=== PATIENT | male | born 1950 | race Two or more races ===

== ENCOUNTER 2024-03-20 06:06 | Inpatient (IN) | payer MEDICARE, MEDICAID ==
[~2024-03-20] VITALS: Ht 190.5 cm; Wt 67.4 kg
[2024-03-20 07:45] LABS: COVID AG,FIA SOURCE NASAL SWAB
[2024-03-20 07:50] LABS: BASOPHILS % (AUTO) 0.9 % (0.0-2.0); EOSINOPHILS % (AUTO) 5.5 % (1.0-6.0); HEMATOCRIT 28.8 % (41-53); HEMOGLOBIN 9.6 g/dL (13.5-17.5); LYMPHOCYTES # (AUTO) 1.3 K/uL (1.0-4.8); LYMPHOCYTES % (AUTO) 22.8 % (22.0-44.0); MEAN CORPUSCULAR HEMOGLOBIN 33.4 pg (26.0-34.0); MEAN CORPUSCULAR HGB CONC 33.3 G/dL (31.0-37.0); MEAN CORPUSCULAR VOLUME 100 fL (80-100); MONOCYTES # (AUTO) 0.9 K/uL (0.1-1.0); MONOCYTES % (AUTO) 15.6 % (2.0-9.0); NEUTROPHILS % (AUTO) 55.2 % (40.0-70.0); PLATELET COUNT (AUTO) 304 K/uL (150-450); RED BLOOD CELL COUNT(AUTO) 2.87 MIL/uL (4.50-5.90); RED CELL DISTRIBUTION WIDTH 14.7 % (11.5-14.5); WHITE BLOOD COUNT (AUTO) 5.5 K/uL (4.5-11.0)
[2024-03-20 07:56] LABS: PH,URINE DRUG SCREEN 7.5 (5.0-8.0)
[2024-03-20 07:58] LABS: ALCOHOL, URINE DRUG SCREEN NEGATIVE (NEGATIVE); AMPHET/METH SCREEN,URINE NEGATIVE (NEGATIVE); BARBITURATE SCREEN, URINE NEGATIVE (NEGATIVE); BENZODIAZEPINES SCREEN,URINE NEGATIVE (NEGATIVE); CANNABINOID SCREEN,URINE NEGATIVE (NEGATIVE); COCAINE SCREEN,URINE NEGATIVE (NEGATIVE); METHADONE SCREEN, URINE NEGATIVE (NEGATIVE); OPIATE SCREEN,URINE NEGATIVE (NEGATIVE); PHENCYCLIDINE SCREEN,URINE NEGATIVE (NEGATIVE)
[2024-03-20 08:01] LABS: ANION GAP 5 mmol/L (8-16); CALCIUM, TOTAL 9.3 mg/dL (8.8-10.5); CARBON DIOXIDE 27 mmol/L (22-29); CHLORIDE 103 mmol/L (98-107); CREATININE 0.99 mg/dL (0.60-1.30); GLOMERULAR FILTR. RATE CALC > 60 mL/min (>60); GLUCOSE,RANDOM 98 mg/dL (70-110); POTASSIUM 4.7 mmol/L (3.5-5.1); SODIUM SERUM 135 mmol/L (136-145); UREA NITROGEN, BLOOD 18 mg/dL (7-18)
[2024-03-20 08:05] LABS: ALCOHOL, BLOOD (SERUM) < 3 mg/dL (0-10)
[2024-03-20 08:06] LABS: SARS-COV2 (COVID) ANTIGEN,FIA Negative (Negative)
[2024-03-20 11:59] LABS: APPEARANCE,URINE CLEAR (CLEAR); BILIRUBIN,URINE NEGATIVE (NEGATIVE); COLOR,URINE LIGHT YELLOW (YELLOW); GLUCOSE, URINE (UA) NEGATIVE (NEGATIVE); KETONES,URINE NEGATIVE (NEGATIVE); LEUKOCYTE ESTERASE ,URINE NEGATIVE (NEGATIVE); NITRATE,URINE NEGATIVE (NEGATIVE); OCCULT BLOOD,URINE NEGATIVE (NEGATIVE); PROTEIN,URINE NEGATIVE (NEGATIVE); UROBILINOGEN,URINE <=1.0 mg/dL (<=1.0)
[2024-03-20] MEDS: LORazepam 2 MG TABLET PO ONE (12:25)
[2024-03-20] MEDS: LORazepam 2 MG TABLET PO PRN (22:15)
[2024-03-20 23:11] VITALS: BP 114/73; PULSE 70; RESP 18; TEMP 98.2; O2SAT 98
[2024-03-20] MEDS: IBUPROFEN 400 MG TABLET PO PRN (23:11)
[2024-03-20] MEDS ORDERED: ONDANSETRON 4 MG TABLET PO PRN (23:15)
[2024-03-20] MEDS ORDERED: MAGNESIUM HYDROXIDE SUSPENSION 30 ML UDCUP PO PRN (23:15)
[2024-03-20] MEDS ORDERED: LOPERAMIDE HCL 2 MG CAPSULE PO PRN (23:15)
[2024-03-20] MEDS ORDERED: NICOTINE 14 MG/24 HOUR PATCH TD PRN (23:15)
[2024-03-20] MEDS ORDERED: ALBUTEROL SULFATE HFA 90 MCG/PUFF 8 GM INHALER IH PRN (23:15)
[2024-03-20] MEDS ORDERED: CloNIDine HCL 0.1 MG TABLET PO PRN (23:15)
[2024-03-20] MEDS ORDERED: MAG HYDROX/ALUMINUM HYD/SIMETH ES 30 ML SUSPENSION UDCUP PO PRN (23:15)
[2024-03-20] MEDS ORDERED: GuaiFENesin/D-METHORPHAN [SUGAR-FREE] 200-20MG/10 ML SYRUP UDCUP PO PRN (23:15)
[2024-03-20] MEDS ORDERED: PETROLATUM,WHITE 28 GM JELLY TP PRN (23:15)
[2024-03-20 23:27] VITALS: BP 119/97; PULSE 91; RESP 16; TEMP 98.1; O2SAT 96
[2024-03-21 07:51] LABS: BASOPHILS % (AUTO) 0.8 % (0.0-2.0); EOSINOPHILS % (AUTO) 9.6 % (1.0-6.0); HEMATOCRIT 29.2 % (41-53); HEMOGLOBIN 9.6 g/dL (13.5-17.5); LYMPHOCYTES % (AUTO) 19.3 % (22.0-44.0); MEAN CORPUSCULAR HEMOGLOBIN 33.4 pg (26.0-34.0); MEAN CORPUSCULAR HGB CONC 32.8 G/dL (31.0-37.0); MEAN CORPUSCULAR VOLUME 102 fL (80-100); MONOCYTES # (AUTO) 0.8 K/uL (0.1-1.0); MONOCYTES % (AUTO) 16.2 % (2.0-9.0); NEUTROPHILS # (AUTO) 2.7 K/uL (1.8-7.7); NEUTROPHILS % (AUTO) 54.1 % (40.0-70.0); PLATELET COUNT (AUTO) 308 K/uL (150-450); RED BLOOD CELL COUNT(AUTO) 2.87 MIL/uL (4.50-5.90); RED CELL DISTRIBUTION WIDTH 14.6 % (11.5-14.5)
[2024-03-21 08:20] LABS: ALANINE AMINOTRANSFERASE 23 U/L (12-78); ALBUMIN 3.3 g/dL (3.4-5.0); ALKALINE PHOSPHATASE 82 U/L (46-116); ANION GAP 7 mmol/L (8-16); ASPARTATE AMINOTRANSFERASE 21 U/L (15-37); BILIRUBIN,TOTAL 0.2 mg/dL (0.1-1.0); CALCIUM, TOTAL 8.8 mg/dL (8.8-10.5); CARBON DIOXIDE 25 mmol/L (22-29); CHLORIDE 105 mmol/L (98-107); CREATININE 0.97 mg/dL (0.60-1.30); GLOMERULAR FILTR. RATE CALC > 60 mL/min (>60); GLUCOSE,RANDOM 75 mg/dL (70-110); POTASSIUM 5.1 mmol/L (3.5-5.1); SODIUM SERUM 137 mmol/L (136-145); THYROID STIMULATING HORMONE 4.53 uIU/mL (0.36-3.74); TOTAL PROTEIN, SERUM 6.8 g/dL (6.4-8.2); UREA NITROGEN, BLOOD 15 mg/dL (7-18)
[2024-03-21 09:00] VITALS: BP 102/74; PULSE 93; RESP 17; TEMP 97.6; O2SAT 99
[2024-03-21 09:00] LABS: CHOL/HDL RATIO 2.1 (4.2-7.3); CHOLESTEROL 126 mg/dL (131-200); HDL CHOLESTEROL 61 mg/dL (40-60); LDL CHOL (CALC.) 55 mg/dL (0-130); TRIGLYCERIDES 50 mg/dL (15-150)
[2024-03-21] MEDS: DiphenhydrAMINE HCL 50 MG/ML VIAL IM ONE (20:13)
[2024-03-21] MEDS: LORazepam 2 MG/ML VIAL IM ONE (20:13)
[2024-03-21] MEDS: HALOPERIDOL LACTATE 5 MG/ML VIAL IM ONE (20:14)
[2024-03-21 20:31] VITALS: PULSE 115; RESP 18; O2SAT 98
[2024-03-22] MEDS: VENLAFAXINE HCL 75 MG ER CAPSULE PO SCH (08:35)
[2024-03-22] MEDS: AMITRIPTYLINE HCL 75 MG TABLET PO SCH (08:35)
[2024-03-22 09:23] VITALS: RESP 18; TEMP 97.7
[2024-03-22 20:44] VITALS: BP 124/88; PULSE 82; RESP 18; TEMP 98; O2SAT 99
[2024-03-23 10:15] VITALS: BP 114/70; PULSE 87; RESP 18; TEMP 97.1; O2SAT 96
[2024-03-23 20:35] VITALS: BP 113/62; PULSE 88; RESP 18; TEMP 99; O2SAT 99
[2024-03-24 08:41] VITALS: BP 130/72; PULSE 84; RESP 18; TEMP 99; O2SAT 100
[2024-03-24 21:03] VITALS: BP 143/74; PULSE 90; RESP 18; TEMP 97.5; O2SAT 100
[2024-03-25 08:29] VITALS: BP 116/72; PULSE 90; RESP 17; TEMP 98.6; O2SAT 98
[2024-03-25 21:08] VITALS: BP 104/74; PULSE 83; RESP 17; TEMP 98.2; O2SAT 98
[2024-03-26 09:17] VITALS: BP 112/77; PULSE 89; RESP 18; TEMP 98.6; O2SAT 100
[2024-03-26 14:30] VITALS: BP 111/83; PULSE 83; RESP 18; O2SAT 98
[2024-03-26 21:15] VITALS: BP 112/84; PULSE 62; RESP 20; TEMP 98.6; O2SAT 97
[2024-03-27 06:48] VITALS: BP 112/70; PULSE 73; RESP 18; TEMP 98.2; O2SAT 98
[2024-03-27] MEDS: ACETAMINOPHEN 325 MG TABLET PO PRN (06:51)
[2024-03-27 08:35] VITALS: BP 102/63; PULSE 79; TEMP 98; O2SAT 99
[2024-03-27] MEDS: HALOPERIDOL 5 MG TABLET PO PRN (17:15)
[2024-03-27 20:10] VITALS: BP 114/79; PULSE 90; RESP 18; TEMP 97.4; O2SAT 98
[2024-03-27] MEDS: ZOLPIDEM TARTRATE 10 MG TABLET PO PRN (20:19)
[2024-03-28 08:16] VITALS: BP 131/90; PULSE 83; RESP 16; TEMP 98.5; O2SAT 100
[2024-03-28 20:20] VITALS: BP 109/68; PULSE 85; RESP 18; TEMP 98.3; O2SAT 97
[2024-03-29] MEDS: DOCUSATE SODIUM 100 MG CAPSULE PO PRN (06:28)
[2024-03-29 08:44] VITALS: BP 116/77; PULSE 78; RESP 18; TEMP 97.1; O2SAT 98
[2024-03-29 20:47] VITALS: BP 126/89; PULSE 95; RESP 18; TEMP 98.3; O2SAT 99
[2024-03-30 10:09] VITALS: BP 119/80; PULSE 75; RESP 18; TEMP 97; O2SAT 97
[2024-03-30 20:50] VITALS: BP 120/58; PULSE 18; RESP 18; TEMP 98; O2SAT 99
[2024-03-31 08:47] VITALS: BP 111/77; PULSE 18; RESP 18; TEMP 98.4; O2SAT 98
[2024-03-31 21:15] VITALS: BP 117/92; PULSE 83; RESP 18; TEMP 98.2; O2SAT 97
[2024-04-01 21:52] VITALS: BP 115/77; PULSE 86; RESP 18; TEMP 97; O2SAT 98
[2024-04-02 12:33] VITALS: BP 118/83; PULSE 90; RESP 18; TEMP 97.3; O2SAT 97
[2024-04-02 22:44] VITALS: RESP 19; TEMP 97.6
[2024-04-03 10:27] VITALS: BP 112/67; PULSE 83; RESP 18; TEMP 97.9; O2SAT 95
[2024-04-03 21:40] VITALS: BP 119/73; PULSE 84; RESP 18; TEMP 98.1; O2SAT 100
[2024-04-04 09:00] VITALS: BP 108/76; PULSE 84; RESP 17; TEMP 97.6; O2SAT 95
[2024-04-04] MEDS: VENLAFAXINE HCL 150 MG ER CAPSULE PO SCH (09:23)
[2024-04-04 21:10] VITALS: BP 127/81; PULSE 95; RESP 18; TEMP 98.1; O2SAT 100
[2024-04-05 09:00] VITALS: BP 138/82; PULSE 74; RESP 18; TEMP 98; O2SAT 97
[2024-04-05 22:46] VITALS: BP 117/75; PULSE 57; RESP 18; TEMP 98; O2SAT 98
[2024-04-06] MEDS ORDERED: AMIT75TA2 PO (09:10)
[2024-04-06] MEDS ORDERED: VENL-68 PO (09:10)
[2024-04-06 10:00] VITALS: BP 117/80; PULSE 83; RESP 19; TEMP 97.8; O2SAT 98
== END 2024-04-06 17:44 | disposition home health service (06) | DRG 885 ==
LOC: EMS 06:09 → 3EI 21:23
PROVIDERS: ADMIT Psychiatry & Neurology Child & Adolescent Psychiatry; ATTEND Psychiatry & Neurology Child & Adolescent Psychiatry
PROC: GZ52ZZZ Individual Psychotherapy, Cognitive (ICD-10-PCS; principal; 2024-03-21)
PROC: GZ56ZZZ Individual Psychotherapy, Supportive (ICD-10-PCS; 2024-03-21)
PROC: GZHZZZZ Group Psychotherapy (ICD-10-PCS; 2024-03-21)
DX: F33.2 Major depressive disorder, recurrent severe without psychotic features (principal); E87.1 Hypo-osmolality and hyponatremia; F41.9 Anxiety disorder, unspecified; D64.9 Anemia, unspecified; I10 Essential (primary) hypertension; G47.00 Insomnia, unspecified; Z20.822 Contact with and (suspected) exposure to COVID-19; Z79.899 Other long term (current) drug therapy
CPT/HCPCS: 80048; 80053; 80061; 80307; 81003; 83036; 84443; 85025; 87081; 99285; G0480

== ENCOUNTER 2024-04-14 08:09 | Emergency (ER) | payer MEDICARE, MEDICAID ==
[~2024-04-14] VITALS: Ht 182.9 cm; Wt 77.3 kg
[~2024-04-14 08:09] MED LIST: AMIT75TA2 PO; VENL-68 PO
[2024-04-14 08:21] VITALS: BP 150/79; PULSE 87; RESP 20; TEMP 97.9; O2SAT 97
[2024-04-14 08:45] LABS: BASOPHILS % (AUTO) 1.3 % (0.0-2.0); EOSINOPHILS % (AUTO) 6.9 % (1.0-6.0); HEMATOCRIT 28.5 % (41-53); HEMOGLOBIN 9.5 g/dL (13.5-17.5); LYMPHOCYTES # (AUTO) 0.8 K/uL (1.0-4.8); LYMPHOCYTES % (AUTO) 18.2 % (22.0-44.0); MEAN CORPUSCULAR HEMOGLOBIN 33.1 pg (26.0-34.0); MEAN CORPUSCULAR HGB CONC 33.4 G/dL (31.0-37.0); MEAN CORPUSCULAR VOLUME 99 fL (80-100); MONOCYTES # (AUTO) 0.5 K/uL (0.1-1.0); MONOCYTES % (AUTO) 11.7 % (2.0-9.0); NEUTROPHILS # (AUTO) 2.9 K/uL (1.8-7.7); NEUTROPHILS % (AUTO) 61.9 % (40.0-70.0); PLATELET COUNT (AUTO) 244 K/uL (150-450); RED BLOOD CELL COUNT(AUTO) 2.87 MIL/uL (4.50-5.90); RED CELL DISTRIBUTION WIDTH 14.2 % (11.5-14.5); WHITE BLOOD COUNT (AUTO) 4.7 K/uL (4.5-11.0)
[2024-04-14 08:52] LABS: ANION GAP 7 mmol/L (8-16); CALCIUM, TOTAL 8.2 mg/dL (8.8-10.5); CARBON DIOXIDE 26 mmol/L (22-29); CHLORIDE 107 mmol/L (98-107); CREATININE 0.92 mg/dL (0.60-1.30); GLOMERULAR FILTR. RATE CALC > 60 mL/min (>60); GLUCOSE,RANDOM 91 mg/dL (70-110); POTASSIUM 4.1 mmol/L (3.5-5.1); SODIUM SERUM 140 mmol/L (136-145); UREA NITROGEN, BLOOD 20 mg/dL (7-18)
[2024-04-14 09:48] LABS: ALCOHOL, BLOOD (SERUM) < 3 mg/dL (0-10)
[2024-04-14] MEDS: OLANZapine 5 MG TABLET PO ONE (10:41)
== END 2024-04-14 11:25 | disposition home or self-care (01) ==
LOC: EMS 08:09
DX: R41.0 Disorientation, unspecified (principal); F32.A Depression, unspecified; Z79.899 Other long term (current) drug therapy
CPT/HCPCS: 99283; 80048; 85025; 36415; G0480